=== PATIENT | female | born 1965 | race Hispanic/Latino ===

== ENCOUNTER 2018-03-06 09:22 | Emergency (ER) | payer SELFPAY ==
[2018-03-06] MEDS ORDERED: IBUPROFEN 400 MG TAB ONE (10:20)
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
== END 2018-03-06 11:37 | disposition home or self-care (01) ==
LOC: ER 09:22
DX: S16.1XXA Strain of muscle, fascia and tendon at neck level, initial encounter (principal); M25.511 Pain in right shoulder; E11.8 Type 2 diabetes mellitus with unspecified complications; V43.52XA Car driver injured in collision with other type car in traffic accident, initial encounter; Y93.9 Activity, unspecified; Y92.410 Unspecified street and highway as the place of occurrence of the external cause; Z79.4 Long term (current) use of insulin
CPT/HCPCS: 72125; 99284